=== PATIENT | male | born 1975 | race Two or more races ===

== ENCOUNTER 2024-12-14 18:35 | Emergency (ER) | payer MEDICAID, SELFPAY ==
[2024-12-14 18:37] VITALS: BMI 27.3
--- NOTE | 2024-12-14 18:41 | EKG_ITS ---
[facility] Test Date: 2024-12-14 Pat Name: shai fiore Department: Room: - Gender: Male [employer]: : 1975 Requested By: Fracisco Harper Order Number: [id number] Reading MD: Fracisco Harper Measurements Intervals [place] Rate: 81 P: 44 NH: 146 QRS: 22 QRSD: 83 T: 11 QT: 364 QTc: 425 Interpretive Statements SINUS RHYTHM POSSIBLE RIGHT VENTRICULAR CONDUCTION DELAY [RSR (QR) IN V1/V2] NONSPECIFIC T-WAVE ABNORMALITY No previous ECG available for comparison /[id number]/[email or web address]/[id number]
[2024-12-14 18:49] VITALS: BP 162/136; BP 163/119; PULSE 86; RESP 18; TEMP 37; O2SAT 97
--- NOTE | 2024-12-14 19:00 | XR_ITS ---
EXAMINATION: PA chest single view TECHNIQUE: 1. Upright PA chest single view Date and time: December 14, 2024, 1907 hours INDICATIONS: Chest pain radiating to the left shoulder with confusion today. FINDINGS: Normal heart size No pneumonia or pulmonary edema. Osseous structures appear intact IMPRESSION: No active disease
--- NOTE | 2024-12-14 19:00 | PD.EDRME ---
Rapid Medical Screening Exam RME Arrival date/time: 12/14/24 18:35 49M with no significant PMH presents to ED with 30 min of sudden CP that radiates to arm with some SOB. Patient denies URI symptoms, anxiety, and alcohol/drug use. Chief Complaint: Chest Pain Time Seen by Provider: 12/15/24 01:26 Vital signs: Vital Signs Temperature 98.6 F 12/14/24 18:49 Pulse Rate 86 12/14/24 18:49 Respiratory Rate 18 12/14/24 18:49 Blood Pressure 162/136 H 12/14/24 18:49 Pulse Oximetry (%) 97 12/14/24 18:49 Oxygen Delivery Method Room Air 12/14/24 18:49 Exam: RRR. Clear lungs and normal WOB. Clinical Impression: Possible ACS vs anxiety vs GERD
[2024-12-14 19:33] LABS: Basophils # (Auto) 0.1 Thou/mm3 (0.0-0.2); Basophils % (Auto) 1 % (0-2.5); Eosinophils # (Auto) 0.1 Thou/mm3 (0.0-0.5); Eosinophils % (Auto) 2 % (0-10); Hematocrit 39.7 % (41.0-53.0); Hemoglobin 13.9 g/dL (13.5-16.0); Immature Granulocytes Auto 0.02 Thou/mm3 (0.00-0.00); Lymphocytes # (Auto) 1.8 Thou/mm3 (1.0-4.8); Lymphocytes % (Auto) 33 % (10-50); Mean Corpuscular HGB Conc 35.0 g/dl (31.0-37.0); Mean Corpuscular Hemoglobin 27.7 pg (25.0-35.0); Mean Corpuscular Volume 79 fL (80-100); Monocytes # (Auto) 0.4 Thou/mm3 (0.0-0.8); Monocytes % (Auto) 7 % (0-12); Neutrophils # (Auto) 3.1 Thou/mm3 (1.8-7.7); Neutrophils % (Auto) 56 % (37-80); Nucleated Red Blood Cell # 0.00 Thou/mm3 (0.00-0.00); Nucleated Red Blood Cell % 0 /100 WBC (0); Platelet Count 193 Thou/mm3 (140-440); RDW Standard Deviation 39.3 fL (35.1-43.9); Red Blood Count 5.01 Miln/mm3 (4.50-5.90); White Blood Count 5.5 Thou/mm3 (3.8-10.6)
[2024-12-14 19:49] LABS: INR 1.0 (0.9-1.3); Partial Thromboplastin Time 31.3 Seconds (22.0-36.0); Prothrombin Time 11.1 Seconds (9.0-12.2)
[2024-12-14 19:55] LABS: B-Type Natriuretic Peptide 33 pg/mL (0-100)
[2024-12-14 19:58] LABS: Alanine Aminotransferase 10 U/L (10-49); Albumin, Serum 4.6 gm/dL (3.5-5.0); Albumin/Globulin Ratio 2.2 (1.2-2.2); Alkaline Phosphatase 84 U/L (46-116); Anion Gap 11 (7-16); Aspartate Amino Transferase 20 U/L (0-34); BUN/Creatinine Ratio 12 Ratio (12-20); Bilirubin,Total 0.4 mg/dL (0.3-1.2); Blood Urea Nitrogen 11 mg/dL (9-23); Calcium 9.1 mg/dL (8.3-10.6); Calcium (Corrected) 9.1 mg/dL (8.5-10.1); Carbon Dioxide 26.0 mMol/L (20.0-31.0); Chloride 106 mMol/L (98-107); Creatinine (Component) 0.9 mg/dL (0.6-1.3); Estimated Creatinine Clearance 100.3 mL/min (>60); Globulin 2.1 gm/dL (2.3-3.5); Glucose 98 mg/dL (74-106); Magnesium 2.1 mg/dL (1.6-2.6); Osmolality,Calculated 284 (275-295); Potassium 3.5 mMol/L (3.4-5.1); Sodium 143 mMol/L (136-145); Total Protein 6.7 gm/dL (5.7-8.2); Troponin I < 0.002 ng/mL (0.0-0.045); eGFR > 60 See Note
[2024-12-14 20:50] LABS: Troponin I < 0.002 ng/mL (0.0-0.045)
[2024-12-14 21:50] VITALS: BP 146/106; PULSE 60; RESP 18; TEMP 36.9; O2SAT 99
[2024-12-14 22:38] LABS: Amphetamine/Methamp Scrn,U Negative (Negative); Barbiturate Screen,Urine Negative (Negative); Benzodiazepines Screen,Urine Negative (Negative); Benzoylecgonine Screen, Ur Negative (Negative); Fentanyl Screen,Urine Negative (Negative); Opiate Screen,Urine Negative (Negative); THC Screen,Urine Positive (Negative)
[2024-12-15 01:23] LABS: D-Dimer < 250 ng/mL (<600)
[2024-12-15 01:29] LABS: Troponin I < 0.020 ng/mL (0.0-0.045)
--- NOTE | 2024-12-15 01:31 | EDNOTE_ITS ---
ED Chest Pain RME/HPI General Chief Complaint: Chest Pain Stated Complaint: chest pain, sob, left arm pain Time Seen by Provider: 12/15/24 01:26 Arrival date/time: 12/14/24 18:35 49M with no significant PMH presents to ED with 30 min of sudden CP that radiates to arm with some SOB. Patient denies URI symptoms, anxiety, and alcohol/drug use. Limitations: no limitations RME / HPI RME / HPI narrative: 12/14/24 18:35 49M with no significant PMH presents to ED with 30 min of sudden CP that radiates to arm with some SOB. Patient denies URI symptoms, anxiety, and alcohol/drug use. Exam: RRR. Clear lungs and normal WOB. Impression: Possible ACS vs anxiety vs GERD Related Data Allergies Allergy/AdvReac Type Severity Reaction Status Date / Time No Known Allergies Allergy Verified 12/14/24 19:04 Review of Systems Review of Systems Systems Reviewed: All systems reviewed, normal except as documented Cardiovascular Cardiovascular: Reports as per HPI and Reports chest pain Past Medical History Social History SMOKING STATUS: Never smoker ED Exam General Limitations: Present no limitations General appearance: Present alert and in no apparent distress Head Head exam: Present atraumatic Neck Neck exam: Present normal inspection, full ROM and trachea midline Chest Chest inspection: Present normal inspection and symmetric chest wall rise Respiratory Respiratory exam: Present normal lung sounds bilaterally Cardiovascular Cardiovascular exam: Present regular rate, normal rhythm and normal heart sounds Neurological Exam Neurological exam: Present alert and oriented X3 Psychiatric Psychiatric exam: Present normal affect and normal mood Skin Skin exam: Present warm, dry, intact and normal color Course Quality Measures none Orders Category Date Time Status EKG (ED ONLY) *Do not use* NOW Care 12/14/24 18:41 Completed EKG (ED Only) Stat Exams 12/14/24 18:41 Draft XR chest 1V portable Stat Exams 12/14/24 19:00 Completed B-Type Natriuretic Peptide Stat Lab 12/14/24 19:18 Completed CBC Stat Lab 12/14/24 19:18 Completed Comprehensive Metabolic Panel Stat Lab 12/14/24 19:18 Completed D-Dimer Stat Lab 12/15/24 00:40 Completed Drug Screen,Urine Stat Lab 12/14/24 20:50 Completed Magnesium Stat Lab 12/14/24 19:18 Completed Partial Thromboplastin Time Stat Lab 12/14/24 19:18 Completed Prothrombin Time with INR Stat Lab 12/14/24 19:18 Completed Troponin I Stat Lab 12/14/24 19:18 Completed Troponin I Stat Lab 12/14/24 20:18 Completed Troponin I Stat Lab 12/15/24 00:40 Completed Aspirin Med 12/14/24 19:00 Discontinued 325 mg PO X1 ONE Vital Signs Vital signs: Vital Signs Temperature 98.6 F 12/14/24 18:49 Pulse Rate 86 12/14/24 18:49 Respiratory Rate 18 12/14/24 18:49 Blood Pressure 162/136 H 12/14/24 18:49 Pulse Oximetry (%) 97 12/14/24 18:49 Oxygen Delivery Method Room Air 12/14/24 18:49 O2 at 97% on RA and WNLs Chest Pain MDM Narrative MDM Narrative:: 49M with no significant PMH presents to ED with 30 min of sudden CP that radiates to arm with some SOB. Patient denies URI symptoms, anxiety, and alcohol/drug use. Physical exam reveals clear lungs and normal WOB. RRR. Patient is afebrile, calm, and alert. EKG is NSR. CXR unremarkable. Trop (3x normal) D-dimer and BNP normal. Marijuana+. Meds and application counselor given. Patient data External records reviewed:: None Clinical information provided by:: patient Social determinants that could affect healthcare access:: none Patient has the following chronic illnesses:: none How is presenting disease/condition affected by chronic disease/condition?: no chronic disease Evaluation data The following diagnostics were reviewed and interpreted by me:: lab results, radiology exam(s) and EKG tracing(s) Lab and/or radiology exams considered but not ordered:: ordered Interpretation Summary: above Medications / Prescriptions Medications or Prescriptions considered but not ordered:: ordered Medication administrations:: Medication Administration History Discontinued Medications Aspirin (Aspirin 325 Mg Tablet) 325 mg PO X1 ONE Stop: 12/14/24 19:01 Last Admin: 12/14/24 20:17 Dose: 325 mg Documented By: above Consultations Consultation(s) initiated? (list below): No Diagnosis Chest Pain Differential Diagnosis: fracture of rib, pneumothorax, stable angina, unstable angina pectoris, atypical chest pain, st elevation myocardial infarction, costochondritis, chest pain, biliary colic and other (drug use, anxiety) Most likely diagnosis given after review of the tests above:: atypical chest pain Admission Indicated Admission indicated?: not indicated Admission Request Was there a request for admission?: No Disposition Plan Disposition Plan: Discharge Discharge Attestation Discharge Attestation: The patient and all family members were given an opportunity to ask questions and understood the discharge instructions. Discharge instructions specifically effects, indications for sooner follow up or return to the emergency department, and the expected course of current diagnosis. Patient condition: Stable Discharge Plan Plan Patient Disposition: HOME (Self Care) Discharge Disposition comment: Stable Prescriptions/Referrals Referrals: No Primary/Family,Physician [Primary Care Provider] - In 1 week Problem List Clinical Impression: Atypical chest pain Patient/Caregiver Discharge Instructions Education Materials: ED Chest Pain, Uncertain Cause Additional Instructions: Please follow-up with PCP within 24-48 hours and return immediately if symptoms worsen. Print Language: Irish Stand Alone Forms: Patient Portal Info Letter VIVIEN/LOUISA Supervising Physician VIVIEN/LOUISA Supervising Physician: Dr. Sky
== END 2024-12-15 01:32 | disposition home or self-care (01) ==
PROVIDERS: Physician Assistant; Emergency Provider Emergency Medicine
DX: R07.89 Other chest pain (principal)
CPT/HCPCS: 36415; 71045; 80053; 80307; 83735; 83880; 84484; 85025; 85379; 85610; 85730; 93005; 99282; A9270